=== PATIENT | male | born 1970 | race American Indian/Alaskan Native ===

== ENCOUNTER 2022-03-06 08:30 | Outpatient (CLI) | payer OTHER ==
--- NOTE | 2022-03-06 09:48 | XRay Report ---
CHEST 2 VIEWS INDICATION / CLINICAL INFORMATION: R07.9 CHEST PAIN,UNSPECIFIED. COMPARISON: 04/02/2016 FINDINGS: SUPPORT DEVICES: None. HEART / MEDIASTINUM: No significant abnormality. LUNGS / PLEURA: No significant pulmonary or pleural abnormality. No pneumothorax. ADDITIONAL FINDINGS: No significant additional findings. IMPRESSION: 1. No acute findings. No change since 2015. Signer Name: Braulio Mi Jr, MD Signed: 03/06/2022 9:43 AM Workstation Name: [id number]
== END 2022-03-06 08:31 | disposition home or self-care (01) ==
LOC: XRAY 08:30
PROVIDERS: ATTEND Internal Medicine
DX: R07.9 Chest pain, unspecified (principal)
CPT/HCPCS: 71046